=== PATIENT | female | born 1965 | race Caucasian/White ===

== ENCOUNTER 2021-06-09 20:51 | Emergency (ER) | payer SELFPAY ==
[~2021-06-09] VITALS: Ht 160 cm; Wt 88.0 kg
[2021-06-09 20:52] VITALS: BP 142/72
== END 2021-06-10 01:35 | disposition left against medical advice (07) ==
LOC: ER 20:51
DX: Z53.21 Procedure and treatment not carried out due to patient leaving prior to being seen by health care provider (principal); I10 Essential (primary) hypertension